=== PATIENT | female | born 1965 | race Caucasian/White ===

== ENCOUNTER 2020-10-14 21:27 | Emergency (ER) | payer OTHER ==
[~2020-10-14] VITALS: Ht 177.8 cm; Wt 81.6 kg
--- NOTE | 2020-10-14 21:39 | NUR ---
MD Pisano in room to do MSE.
[2020-10-14] MEDS ORDERED: predniSONE 20 MG TABLET PO ONE (21:45)
[2020-10-14] MEDS ORDERED: diphenhydrAMINE 25 MG CAP PO ONE ×2 (21:45→21:50)
[2020-10-14] MEDS ORDERED: predniSONE 20 MG TABLET ONE (21:50)
[2020-10-14] MEDS ORDERED: EPINEPHRINE-PF 1:1000 1 MG/ML AMPUL IM ONE (22:00)
[2020-10-14] MEDS ORDERED: MAG HYDROX/AL HYDROX/SIMETH 30 ML LIQUID UDC PO ONE (22:00)
[2020-10-14] MEDS ORDERED: EPINEPHRINE 1 MG/1 ML AMP ONE (22:03)
[2020-10-14] MEDS ORDERED: EPIN0.3A4 IM (22:11)
[2020-10-14] MEDS ORDERED: PRED20TA PO (22:11)
[2020-10-14] MEDS ORDERED: DIPH25TA62 PO (22:11)
[2020-10-14] MEDS ORDERED: FAMO-132 PO (22:11)
--- NOTE | 2020-10-14 23:15 | NUR ---
Patient resting on bed, with her son at bedside. No acute distress noted at this time.
[2020-10-15 00:05] VITALS: BP 104/58
--- NOTE | 2020-10-15 00:05 | NUR ---
Patient discharged to home in stable condition. Written and verbal after care instructions given. Patient verbalizes understanding of instructions. Stressed follow up or return to ER for worsening s/s. Patient ambulates with steady gait, V/S stable, received paper Rx, and left with son with all her personal belongings.
== END 2020-10-15 00:05 | disposition home or self-care (01) ==
LOC: ER 21:27
DX: T78.00XA Anaphylactic reaction due to unspecified food, initial encounter (principal)
CPT/HCPCS: 96372; 99291; 99292; J0171; J7512; Q0163; A4663